=== PATIENT | male | born 1980 | race Caucasian/White ===

== ENCOUNTER → 2017-04-18 | Outpatient (CLI) | payer BC ==
[~2017-04-18] MED LIST: FLEXERIL10 M1 PO; MEDROL DOSEPAK4 MG DOB; NO MEDICATIONS; PHENERGAN PO; ULTRAM PO; VICODIN 5/1 TAB 5/50 PO; VICODIN 5/500 T1 TAB PO; VOLTAREN75 MG PO
--- NOTE | ~2017-04-18 | US115 ---
[facility]. [facility] A Service of [facility] RADIOLOGY TEXT RESULTS PATIENT: GATO SPARKS LOCATION: [facility] : [birth year] UNIT #: [id number] AGE: [address]: Satnam Maciel MD SEX: M ORDER DR: [id number] [address] [id number] [id number] O MR#: [id number] Acc #: [id number] NAME: GATO SPARKS : 1980 SEX: M STUDY DATE/TIME: 04/18/2017 14:50 UNIT: [facility] ROOM: STUDY DESCRIPTION: US Scrotum and Contents Attending Physician: Satnam Maciel M.D. Referring Physician: Satnam Maciel M.D. Ordering Physician: Satnam Maciel M.D. Primary Care Physician: Satnam Maciel M.D. MEDICAL IMAGING REPORT This report is preliminary unless electronic signature is present. EXAM Testicular ultrasound bilateral 04/18/2017 INDICATIONS 36-year-old male with testicular pain. Intermittent pain for 6 months. No prior surgeries. No prior trauma. TECHNIQUE Holliday-scale, color Doppler and spectral analysis of the testicles was performed bilaterally. COMPARISON STUDIES 01/04/2011. FINDINGS The right testicle measures 3.9 cm long axis and the left 4.1 cm. Tiny epididymal head cyst or spermatocele on the right measures 5 mm and is unchanged. Both testicles demonstrate good flow at the time of the study. No distinct evidence of orchitis or epididymitis. Trace amount of fluid surrounds both testicles. No evidence of intratesticular mass. Equivocal left-sided varicocele. IMPRESSION 1. No evidence of intratesticular mass. Both testicles demonstrate good flow at the time of the study without evidence of orchitis or epididymitis. 2. Incidental tiny spermatocele or epididymal head cyst on the right measures 5 mm and is unchanged. 3. Examination is otherwise negative. Incidental trace amount of fluid surrounding both testicles and an equivocal varicocele on the left. [facility] A Service of [facility] RADIOLOGY TEXT RESULTS PATIENT: GATO SPARKS LOCATION: [facility] : [birth year] UNIT #: [id number] AGE: [address]: Satnam Maciel MD SEX: M ORDER DR: Dictated by... Deon Tellez M.D. THIS IS AN ELECTRONICALLY VERIFIED REPORT Deon Tellez M.D. at 04/19/2017 8:24 AM JULIANA[facility] TD: 04/18/2017 19:43 JOB #: [id number] MEDICAL IMAGING REPORT Page 1 of 1
== END | disposition home or self-care (01) ==
LOC: SRAD 14:36 → SGUS 15:00
DX: N50.819 Testicular pain, unspecified (principal); I86.1 Scrotal varices; Z87.438 Personal history of other diseases of male genital organs
CPT/HCPCS: 76870